=== PATIENT | male | born 1990 | race African-American/Black ===

== ENCOUNTER 2017-12-11 18:34 | Emergency (ER) | payer OTHER ==
[~2017-12-11] VITALS: Ht 190.5 cm; Wt 205.9 kg
[~2017-12-11 18:34] MED LIST: AUGMENTIN 875875 MG PO; CHLORTHALIDONE50 MG PO; CIPROFLOXACIN750 MG PO; COZAAR100 MG PO; HUMALOG PE100 UNIT/M SC; HYDROCODONE-AP1 EAC6 PO; KEFLEX500 MG PO; LISINOPRIL20 MG PO; LOTRISONE CREAM15 GM TP; METOPROLOL SUCC50 MG PO; NOHOMEMEDICATIONS; TOUJEO SOL300 UNIT/1 SQ; TOUJEO SOL300 UNIT/1 SUBQ; TYLENOL325 MG PO
[2017-12-11] MEDS ORDERED: TOPROL XL100 MG PO (19:04)
[2017-12-11] MEDS ORDERED: PRAVASTATIN SOD20 MG PO (19:05)
[2017-12-11 19:31] LABS: ABSOLUTE NEUTROPHILS 3.8 thou/uL (1.4-8.2); BASOPHILS 0.9 % (0.0-2.0); EOSINOPHILS 6.5 % (0.0-3.0); HEMATOCRIT 46.1 % (42.0-52.0); HEMOGLOBIN 15.4 gm/dL (14.0-18.0); LYMPHOCYTES 24.5 % (24.0-44.0); MCH 26.9 pg (26.0-34.0); MCHC 33.5 g/dL (28.0-37.0); MCV 80.4 fL (80.0-100.0); MONOCYTES 6.9 % (1.0-8.0); PLATELET COUNT 204 thou/uL (150-400); POLYS 61.2 % (36.0-66.0); RBC 5.73 mil/uL (4.50-6.00); RDW 14.4 % (10.5-14.5); WBC 6.2 thou/uL (4.0-11.0)
[2017-12-11 19:53] LABS: CALCIUM 9.1 mg/dL (8.5-10.1); POTASSIUM 4.2 mmol/L (3.5-5.1)
[2017-12-11] MEDS ORDERED: KEFLEX500 M1 PO (22:11)
[2017-12-11] MEDS ORDERED: HYDROCODONE-AP1 EAC6 PO (22:11)
[2017-12-11 22:44] VITALS: BP 138/78
== END 2017-12-11 22:46 | disposition home or self-care (01) ==
LOC: ER 18:34
PROVIDERS: Physician Assistant
DX: L03.116 Cellulitis of left lower limb (principal); I10 Essential (primary) hypertension; E11.9 Type 2 diabetes mellitus without complications

== ENCOUNTER → 2017-12-16 | Outpatient (CLI) | payer OTHER ==
[~2017-12-16] MED LIST changes: +KEFLEX500 M1 PO; +PRAVASTATIN SOD20 MG PO; +TOPROL XL100 MG PO
== END ==
LOC: HYPER 06:54
DX: L03.116 Cellulitis of left lower limb (principal); N48.1 Balanitis; E11.9 Type 2 diabetes mellitus without complications; B35.6 Tinea cruris; I10 Essential (primary) hypertension; E78.5 Hyperlipidemia, unspecified; G47.33 Obstructive sleep apnea (adult) (pediatric); E66.01 Morbid (severe) obesity due to excess calories; Z72.89 Other problems related to lifestyle; Z68.43 Body mass index [BMI] 50.0-59.9, adult

== ENCOUNTER → 2017-12-23 | Outpatient (CLI) | payer OTHER | LOC: HYPER 07:11 | DX: E11.622 Type 2 diabetes mellitus with other skin ulcer (principal); L97.821 Non-pressure chronic ulcer of other part of left lower leg limited to breakdown of skin; N48.1 Balanitis; L02.92 Furuncle, unspecified; R60.0 Localized edema; I10 Essential (primary) hypertension; E66.01 Morbid (severe) obesity due to excess calories; Z68.43 Body mass index [BMI] 50.0-59.9, adult; E78.5 Hyperlipidemia, unspecified; M19.90 Unspecified osteoarthritis, unspecified site; Z72.89 Other problems related to lifestyle ==

== ENCOUNTER → 2018-01-09 | Outpatient (CLI) | payer OTHER | LOC: HYPER 01-06 10:18 | DX: E11.622 Type 2 diabetes mellitus with other skin ulcer (principal); L97.821 Non-pressure chronic ulcer of other part of left lower leg limited to breakdown of skin; I10 Essential (primary) hypertension; E66.01 Morbid (severe) obesity due to excess calories; L03.90 Cellulitis, unspecified; E78.5 Hyperlipidemia, unspecified; B35.6 Tinea cruris; Z68.43 Body mass index [BMI] 50.0-59.9, adult ==

== ENCOUNTER → 2018-01-20 | Outpatient (CLI) | payer OTHER | LOC: HYPER 06:55 | DX: E11.622 Type 2 diabetes mellitus with other skin ulcer (principal); L97.821 Non-pressure chronic ulcer of other part of left lower leg limited to breakdown of skin; L03.90 Cellulitis, unspecified; N48.1 Balanitis; L02.92 Furuncle, unspecified; R60.0 Localized edema; E66.01 Morbid (severe) obesity due to excess calories; Z68.43 Body mass index [BMI] 50.0-59.9, adult; E78.5 Hyperlipidemia, unspecified; I10 Essential (primary) hypertension ==

== ENCOUNTER 2018-11-06 17:08 | Emergency (ER) | payer OTHER ==
[~2018-11-06] VITALS: Ht 190.5 cm; Wt 165.6 kg
[2018-11-06 17:58] LABS: ABSOLUTE NEUTROPHILS 8.3 thou/uL (1.4-8.2); BASOPHILS 0.4 % (0.0-2.0); EOSINOPHILS 0.1 % (0.0-3.0); HEMOGLOBIN 17.8 gm/dL (14.0-18.0); LYMPHOCYTES 10.4 % (24.0-44.0); MCH 29.1 pg (26.0-34.0); MCHC 34.2 g/dL (28.0-37.0); MCV 84.9 fL (80.0-100.0); MONOCYTES 4.3 % (1.0-8.0); PLATELET COUNT 170 thou/uL (150-400); POLYS 84.8 % (36.0-66.0); RBC 6.12 mil/uL (4.50-6.00); RDW 14.3 % (10.5-14.5); WBC 9.8 thou/uL (4.0-11.0)
[2018-11-06 18:07] LABS: URINE BILIRUBIN NEGATIVE (Negative); URINE BLOOD 3+ (Negative); URINE CLARITY CLEAR; URINE COLOR YELLOW; URINE GLUCOSE-RANDOM* NEGATIVE (Negative); URINE KETONES NEGATIVE (Negative); URINE LEUKOCYTES-REFLEX NEGATIVE (Negative); URINE NITRITE-REFLEX NEGATIVE (Negative); URINE PROTEIN (DIPSTICK) NEGATIVE (Negative); URINE UROBILINOGEN 0.2 E.U./dl (0.2-1.0)
[2018-11-06 18:09] LABS: BACTERIA-REFLEX None Seen /HPF (None Seen); CALCIUM 9.4 mg/dL (8.5-10.1); CASTS None Seen /LPF (None Seen); CREATININE 1.2 mg/dL (0.7-1.3); CRYSTALS None Seen /LPF (None Seen); POTASSIUM 4.3 mmol/L (3.5-5.1); SQUAMOUS None Seen /LPF (0-3); URINE RBC >20 Many /HPF (0-2); URINE WBC-REFLEX 0-5 Rare /HPF (0-5)
[2018-11-06 18:12] LABS: TOTAL BILIRUBIN 1.2 mg/dL (<0.1-1.0); TOTAL PROTEIN 7.2 g/dL (6.4-8.2)
[2018-11-06] MEDS ORDERED: NORCO 5-325 TA1 EACH PO (19:11)
[2018-11-06] MEDS ORDERED: ZOFRAN ODT4 MG PO (19:11)
[2018-11-06 19:28] VITALS: BP 144/66
== END 2018-11-06 19:29 | disposition home or self-care (01) ==
LOC: ER 17:08
PROVIDERS: Emergency Medicine
DX: N20.1 Calculus of ureter (principal); R11.2 Nausea with vomiting, unspecified; I10 Essential (primary) hypertension; E11.9 Type 2 diabetes mellitus without complications; Z79.4 Long term (current) use of insulin

== ENCOUNTER 2018-11-10 11:13 | Emergency (ER) | payer OTHER ==
[~2018-11-10] VITALS: Ht 190.5 cm; Wt 165.6 kg
[~2018-11-10 11:13] MED LIST changes: +NORCO 5-325 TA1 EACH PO; +ZOFRAN ODT4 MG PO
[2018-11-10 11:39] LABS: URINE BILIRUBIN NEGATIVE (Negative); URINE BLOOD 3+ (Negative); URINE CLARITY CLEAR; URINE COLOR YELLOW; URINE GLUCOSE-RANDOM* NEGATIVE (Negative); URINE KETONES NEGATIVE (Negative); URINE LEUKOCYTES-REFLEX NEGATIVE (Negative); URINE NITRITE-REFLEX NEGATIVE (Negative); URINE PROTEIN (DIPSTICK) TRACE (Negative); URINE UROBILINOGEN 0.2 E.U./dl (0.2-1.0)
[2018-11-10 11:44] LABS: CASTS None Seen /LPF (None Seen); CRYSTALS None Seen /LPF (None Seen); URINE RBC >20 Many /HPF (0-2)
[2018-11-10 11:45] LABS: BACTERIA-REFLEX None Seen /HPF (None Seen); MUCUS 0-3 Light strn/LPF (None Seen); SQUAMOUS None Seen /LPF (0-3); URINE WBC-REFLEX 0-5 Rare /HPF (0-5)
[2018-11-10 12:20] VITALS: BP 151/89
== END 2018-11-10 12:21 | disposition home or self-care (01) ==
LOC: ER 11:13
PROVIDERS: Nurse Practitioner Family
DX: N20.1 Calculus of ureter (principal); I10 Essential (primary) hypertension; E11.9 Type 2 diabetes mellitus without complications; Z98.84 Bariatric surgery status